=== PATIENT | female | born 1955 | race Caucasian/White ===

== ENCOUNTER 2020-08-26 10:43 | Day surgery (SDC) | payer OTHER, SELFPAY ==
[2020-06-29 14:52] VITALS: BMI 26.1
[2020-08-26] VITALS (8 sets, daily range): BP systolic 144–167; BP diastolic 71–93; PULSE 85–116; RESP 14–16; TEMP 36.9–37.3; O2SAT 97–100; BMI 28.0
--- NOTE | 2020-08-26 | IMM_PTH ---
PATIENT: RODRICK SMITH [place] [facility] [place][id number] AGE/SX: 64/F ROOM: RE08/26/[address]: Dr. Malick Santa MD : 1955 BED: DIS: 08/26/2020 SPEC #: [id number] RECD: 08/30/20 11:18 STATUS: SOULonnie REQ #: [id number] BITA: 08/26/20 00:[address]: Malick Santa DEPT: IMMUNOHISTOCHEMISTRY RECD BY: Taisha Chanel ENTERED: 08/30/20 11:20 SP TYPE: IMMUNO OTHR DR: Dr. Renae Burden MD Tissues: A - Skin of face, NOS Procedures: SMA (add) CK8 (add) DESMIN (add) Vimentin (add) Pankeratin (initial) MELAN-A (add) S-100 (add) PHYSICIAN & INSTITUTION [place] [id number] SPECIMEN INFORMATION: Tissue Source: A ? Lesion left cheek Clinical Info: 8 mm cutaneous horn lesion left cheek Specimen Number: [id number] CPT code: 97352, 52905 x6 METHODOLOGY: Deparaffinized sections of prefer/formalin-fixed tissue or PAP/DQ stained slides are incubated with monoclonal/polyclonal antibodies/oligonucleotide probes. Localization is made via biotin free immunoperoxidase method. Appropriate controls are performed and reacted as expected. Results on target cell population are indicated in the following table: RESULTS: ANTIBODY / CLONE RESULT Block A1 AE1-3 (AE1/AE3/PCK26) negative CK8 ([id number]) negative Vimentin (V9) positive Actin (1A4) negative Desmin (CE-R-11) negative Melan A (A103) negative S-100 (4C4.9) positive These tests were developed and their performance characteristics determined by [facility]. They may not have been cleared or approved by the U.S. Food and Drug Administration. The FDA has determined that such clearance or approval is not necessary. The above immunohistochemical/dualISH markers are ordered and reviewed by the Pathologist. INTERPRETATION: A. Lesion of left cheek, biopsy: Consistent with neurofibroma. CYDNEY:connie 08/31/2020
--- NOTE | 2020-08-26 | LES_PTH ---
PATIENT: RODRICK SMITH LOC: [facility] – [place] U#:[id number] AGE/SX: 64/F ROOM: RE08/26/[address]: Dr. Malick Santa MD : 1955 BED: DIS: 08/26/2020 SPEC #: [id number] RECD: 08/26/20 13:02 STATUS: ISABELLA REQ #: [id number] BITA: 08/26/20 00:[address]: Malick Santa DEPT: SURGICAL PATHOLOGY RECD BY: Taisha Chanel ENTERED: 08/26/20 14:06 SP TYPE: Lesion OTHR DR: Dr. Renae Burden MD Tissues: A - Skin of face, NOS B - Skin of face, NOS Procedures: Frozen Section (charge) Surgery Specimen Level IV HEADER OPERATION: Excision lesion cheek with frozen section, skin flap PRE-OP DIAGNOSIS: 8 mm cutaneous horn lesion left cheek TISSUE SUBMITTED: A ? Lesion left cheek, FS at 1300, B ? Extra margin lesion left cheek FROZEN SECTION DIAGNOSIS A. Lesion of left cheek, biopsy: Spindle cell neoplasm. AM:connie 08/26/2020 MICROSCOPIC DIAGNOSIS A. Lesion of left cheek, biopsy: Consistent with neurofibroma, completely excised. See comment. B. Lesion of left cheek, extra margin: Negative for residual neurofibroma. Focal ulceration consistent with site of specimen A. SJ:connie 08/30/2020 COMMENT A. Immunohistochemistry ([id number]) supports the above diagnosis. This case has been reviewed in consultation with Dr. Christy who concurs with the above diagnosis. MICROSCOPIC DESCRIPTION Slides are reviewed. GROSS DESCRIPTION A - Received fresh for frozen section consultation labeled with the patient's name is a specimen designated lesion left cheek. The specimen consists of a polypoid fragment of pink-donohue skin measuring 1 cm in length and 0.8 cm in diameter. The presumed margin of resection is inked. The specimen is bisected and totally submitted in one block for frozen section consultation. / AM:connie 08/26/20 B - Received in fixative is one container labeled with the patient's name and designated extra margin lesion left cheek. The specimen consists of a jennifer-shaped piece of donohue-white skin measuring 1.2 x 1.2 cm and up to 0.3 cm in thickness. A suture is present at presumed to be 12 o?clock positon. The specimen is inked as follows: 12 to 3 o?clock - black, 3 to 6 o?clock - blue, 6 to 9 o?clock - green and 9 to 12 o?clock - yellow. A focal area of ulceration is noted on the surface consistent with site of specimen A measuring 1 cm in diameter. The specimen is serially sectioned and submitted entirely in one cassette. / SJ:connie 08/29/20 TC:1 CPT: 91163 x2, 98965
--- NOTE | 2020-08-26 10:02 | PCM.HP.BLA ---
History and Physical Date of Admission: 08/26/20 HISTORY OF PRESENT ILLNESS 64 year old woman presents for evaluation for TBSE. She has concerns about an enlarging lesion on her left cheek as well as some actinic damage on her nasal dorsum. She denies fever. She denies trauma. Denies bleeding. Denies recent infection. She comes in for further evaluation and treatment. PAST MEDICAL HISTORY Actinic keratosis Neoplasm of skin of left cheek Arthritis Asthma PAST SURGICAL HISTORY Nasal polyp ALLERGIES Penicillins MEDICATIONS albuterol sulfate solution for nebulization beclomethasone dipropionate aerosol inhaler fluoxetine levothyroxine FAMILY HISTORY No pertinent family history SOCIAL HISTORY Smoking Status: Never smoker alcohol intake: never substance use type: does not use REVIEW OF SYSTEMS General - Denies fever, fatigue, and weight loss. Eyes - Denies cataracts and glaucoma. ENT - Denies nasal congestion and sore throat. Endocrine - Denies excessive thirst and urination. Skin - Denies skin cancer. Has an enlarging lesion left cheek. Has scattered actinic damage nasal dorsum. Musculoskeletal - Has joint pain, joint stiffness. Denies weakness of muscles and joints, back pain, and arthritis. Neuro - Denies headaches. Has lightheadedness. Cardiovascular - Denies chest pain, fatigue, and shortness of breath with exertion. Psych - Denies anxiety and depression. Respiratory - Denies chronic cough and shortness of breath. Has asthma. Gastrointestinal - Denies nausea, vomiting, diarrhea, and constipation. Hematologic - Denies abnormal bruising and bleeding. Genitourinary - Denies hematuria and urinary frequency. PHYSICAL EXAMINATION General - Alert and Oriented HEENT - PERRL. EOMI. Throat is clear. On the left cheek is a lesion that is raised in configuration. Measures 8 mm. Some scabbing seen. Has irregular borders. It has a cutaneous horn component. No ulceration. There is firmness at the tip of this lesion. Has scattered actinic damage nasal dorsum. No other suspicious lesions noted. Neck - Supple and nontender. No cervical adenopathy. No suspicious lesions noted. Lungs - Clear to auscultation. Heart - Regular rate and rhythm. Abdomen - Soft and nondistended. Extremities - FROM. No axillary adenopathy. Radial pulses are palpable. No suspicious lesions noted. Neuro - CN II-XII grossly intact. Psych - Normal mood and affect. ASSESSMENT 1. 8 mm cutaneous horn lesion left cheek. 2. Scattered actinic damage nasal dorsum. PLAN Recommend a full thickness excision of the left cheek lesion because there is a cutaneous horn component. Will send the lesion to Pathology for analysis to rule out carcinoma. If carcinoma is present then a wider excision will be done. Reconstruction will be with a local skin flap. Surgery will be done under local anesthesia and IV sedation on an outpatient basis. Patient was informed of the risks and complications of the procedure including alternatives to surgery. These were discussed with the patient personally. Patient voices understanding and wishes to proceed. Some of the risks and complications were included in a form from the [employer]. For the scattered actinic damage nasal dorsum, will send script for Rogelio. She will use it daily at night 5 days per week for 6 weeks. Re-evaluation would be in 2 months. We discussed the current risks associated with COVID-19. While it is understood that there is a community spread of COVID-19, the risk of george COVID-19 while at [facility] ([facility]) is very low; however, the risk cannot be completely mitigated because of the community spread of the disease. We discussed in detail the risk of exposure to and/or potential harm posed by the COVID-19 virus with having a surgery/procedure at this time versus the risk of delaying the surgery/procedure. It is not possible to know either the risk of delaying the surgery or procedure or chance of getting an infection with perfect accuracy, but a joint decision was made to proceed at this time with the scheduled surgery/procedure as indicated on the consent form. Patient was notified that we will need to comply with any screening or testing [facility] wishes to perform or that surgery may be delayed for any positive results. Discussed with the patient that I was tested for COVID-19 on 09/24/19 which was negative and on 10/08/19 which was negative and on 10/22/19 which was negative and on 11/05/19 which was negative and on 11/19/19 which was negative and on 12/10/19 which was negative and on 12/31/19 which was negative and on 02/04/20 which was negative and on 02/25/20 which was negative and on 03/15/20 which was negative. ? My testing regimen at this time is to be COVID-19 tested every 2 weeks or so.? I received the COVID-19 vaccine (Moderna) on 03/23/20 and the second vaccine dose was received on 04/20/20.? When I was hospitalized on 05/23/20 I was tested for COVID-19 which was negative.? I was also? tested for COVID-19 on 06/07/20 which was negative and on 07/04/20 which was negative. Procedure Criteria Procedure Type:?Elective COVID Risk Discussion: The surgeon/proceduralist and patient have discussed in detail the risk of exposure to and/or potential harm posed by the COVID-19 virus with having a surgery/procedure at this time versus the risk of delaying the surgery/procedure.? It is not possible to know either the risk of delaying the surgery or procedure or chance of getting an infection with perfect accuracy, but a joint decision was made between the patient and the surgeon/proceduralist to proceed at this time with the scheduled surgery/procedure as indicated on the consent form.
[2020-08-26] MEDS: Lidocaine 1% /Epi 1:100 (20ml) 20 ML Vial (12:23)
[2020-08-26] MEDS: Mupirocin Ointment 22gm Tube 1 APPLIC (13:46)
--- NOTE | 2020-08-26 13:49 | OP.PCM_ITS ---
Report of Operation Date of Procedure: 08/26/20 Pre-Operative Diagnosis: 1. 8 mm cutaneous horn lesion left cheek. 2. Scattered actinic damage nasal dorsum. Post-Operative Diagnosis: 1. 8 mm dermatofibroma left cheek. 2. Scattered actinic damage nasal dorsum. Surgery/Procedure Performed:: Excision 8 mm cutaneous horn lesion left cheek with rhomboid transposition skin flap reconstruction (2.88 cm2). Description of Surgical Findings:: 64 year old woman presents for evaluation for TBSE. She has concerns about an enlarging lesion on her left cheek as well as some actinic damage on her nasal dorsum. She denies fever. She denies trauma. Denies bleeding. Denies recent infection. Patient was informed of the risks and complications of the procedure including alternatives to surgery. These were discussed with the patient personally. Patient voices understanding and wishes to proceed. Some of the risks and complications were included in a form from the [employer]. Frozen section left cheek - possible dermatofibroma, negative for carcinoma. Surgeon: Malick Santa chief dog license inspector: None Type of Anesthesia: Local MAC (Xylocaine with epinephrine and IV sedation.) Specimen's removed: 1. Cutaneous horn lesion left cheek to Pathology as a frozen section. 2. Additional margin dermatofibroma left cheek to Pathology. Drains: None. Estimated Blood Loss (mL): 2. Description of Procedure: Patient was taken to OR in supine position and was given IV sedation. The left side of the face was prepped and draped in the usual fashion. SCD's were placed for DVT prophylaxis. Perioperative antibio tics were given intravenously. The lesion left cheek was infiltrated with xylocaine and epinephrine. After waiting 5 minutes for the anesthetic to take effect, the cutaneous horn lesion was excised in a circular fashion down into the subcutaneous tissue. A suture was marked at the 12 oclock position for pathology orientation. The lesion was sent to Pathology as a frozen section for analysis to rule out carcinoma. Frozen section showed a possible dermatofibroma and no carcinoma seen. I turned the circular wound into a rhomboid wound with further excision. A suture was marked at 12 oclock position for pathology orientation. The additional tissue was sent to Pathology for analysis. The lesion was excised with a 2 mm margin in all directions thus making it a 1.2 cm excision. A rhomboid flap was designed inferiorly. Incisions were made and the flap was elevated on a subcutaneous pedicle and easily transposed into the defect with minimal tension and minimal distortion. The size of the defect and the size of the flap needed to close the defect was 2.88 cm2. Hemostasis was obtained with electrocautery. The wound was irrigated with saline. Once the flap was transposed into the defect, it was closed in a layered fashion with 5-0 Monocryl interrupted sutures for the deep dermis and subcutaneous tissue. The skin was approximated with 6-0 Prolene simple interrupted sutures. Steri-strips were applied followed by antibiotic ointment. Patient tolerated the procedure well and was sent to PACU in satisfactory condition. Patient will be sent home on antibiotics and pain medication. She will keep her head elevated during the initial postoperative period. Patient will followup in a week for a wound check and for discussion of the pathology report and for removal of the sutures. Grafts/Implants Used: None. Complications None. Admit VTE Documentation VTE Present on Admission: No VTE Mechan Device Prophylaxis: SCD's VTE Pharm Prophylaxis ordered?: No Addendum Addendum: Surgery Charges CPT - 14335 ICD-10 - D49.2, D23.30, L57.0
--- NOTE | 2020-08-26 14:10 | PCM.DC ---
Discharge Instructions Activity Discharge Activity: May Not Drive (if taking pain medication.), May Shower (in two days.) and - (keep head elevated. no heavy lifting.) May shower in (days): 2 May resume sexual activity in: No Restrictions Ice area for (Minutes): 5 (as needed for facial swelling.) Weight Bearing Status: Weight bearing as tolerated Lifting Restrictions: 20 lbs. Keep extremity elevated above heart level: - (elevate head.) Dressing / Incision Call your doctor if your incision/area has: Continuous Slow Oozing, Sudden Increased Bleeding, Increased Redness, Foul Smelling Discharge and Swelling at the incision site Call your doctor if you observe: Fever of 101 or Higher, Shortness of breath and Chest pain Suture Line Care: Avoid Pulling/Pushing (apply antibiotic ointment to suture line daily.) Change Dressing in: leave in place till F/U (if the steri-strips come loose, you may remove them.) Cleanse incision/area with: - (may get incision wet in the shower in two days.) Follow Up Care Please Follow Up With: Malick Santa MD When: one week. call [phone] for appt. Test Results: Test results from this visit will be discussed in further detail at your follow-up appointment, if applicable. Discharge Plan Admission Primary Reason for Your Visit: outpatient surgery Attending Provider: Malick Santa Primary Care Provider: Renae Burden Discharge Orders/Prescriptions Prescriptions: New clindamycin HCl [Cleocin HCl] 300 mg capsule 300 mg PO TID Qty: 12 RF: 0 L.acidoph,saliva-B.bif-S.therm [Acidophilus Probiotic Blend] 175 mg capsule 1 cap PO DAILY Qty: 10 RF: 0 oxycodone-acetaminophen [Percocet] 5-325 mg tablet 1 tab PO Q6H PRN (Reason: pain (scale score 7-10)) 5 Days Qty: 20 RF: 0 Continued levothyroxine 75 mcg capsule 75 mcg PO DAILY RF: 0 fluoxetine 40 mg capsule 40 mg PO DAILY RF: 0 beclomethasone dipropionate 80 mcg/actuation Aerosol 80 mcg INHALATION PRN PRN (Reason: SOB) RF: 0 albuterol sulfate 90 mcg/actuation Hfa Aerosol Inhaler 1 inh INHALATION Q6H PRN (Reason: SOB) RF: 0 Referrals / Follow Up: Malick Santa MD [STAFF PHYSICIAN] - In 1 Week Renae Burden MD [Primary Care Provider] - Disposition Disposition (needs filled in before D/C Order can be placed): Home, self care
== END 2020-08-26 15:31 | disposition home or self-care (01) ==
LOC: SDC 10:44 → AC 10:45
PROVIDERS: PCP Internal Medicine; Referring Provider Surgery; Visit Provider Surgery
PROC: (CPT 14040; principal; 2020-08-26 12:25)
DX: D36.11 Benign neoplasm of peripheral nerves and autonomic nervous system of face, head, and neck (principal); D23.39 Other benign neoplasm of skin of other parts of face; M19.90 Unspecified osteoarthritis, unspecified site; J45.909 Unspecified asthma, uncomplicated; E07.9 Disorder of thyroid, unspecified; Z79.51 Long term (current) use of inhaled steroids; Z79.899 Other long term (current) drug therapy
CPT/HCPCS: 00300; 14040; 64788; 87426; 88305; 88331; 88341; 88342; C9803; J7120; J2405

== ENCOUNTER 2021-11-17 10:00 | Outpatient (RCR) | payer BC, SELFPAY ==
--- NOTE | 2021-11-09 16:41 | HP.PTEVAL ---
Patient's Visit Information RODRICK SMITH is a 65 year old F referred to Physical Therapy by Dr. Anderson Gee MD with a diagnosis of vestibular neuritis. Date of Evaluation: 11/09/21 Physical Therapist: Robert Phipps, BROWNT, OCS, CSCS - Visit Plan Frequency: 1-2x /Week Duration: 2-4 Weeks Plan: 1-2x/week as needed for 2-4 to treat with positional treatments and monitor for vestibular neuritis and appropriate other vestibular exercises. - Subjective I have vertigo. had it on and off for twenty years, usually doesn't last long and she is careful of her movements. usually lasted a day. This past September she got covid and had a solid week of constant dizzyness that kept her from functioning. She could not move/drive and was very scared and frustrated. Went to Dr. gee and ordered vestibular therapy. He did some clinical testing and it is not positional. Currently is 99% better. Got outside the last coupke days and work in garden. bending still bothers her but it is at baseline and goes away quickly. Sleep is Ok currently. Retired. Basic ADLs are going well, they were very slow for a week or so. Hobbies: Gardening and reading. Reading is not a problem. No regular ex. This started around 10/16/21 and lasted badly for about a week. Balance sherrell never been good, Hector chi has helped in the past. - Objective Walks slowly but secure into PT, no confidence in balance but decent balance. Transfers bed and chair I. Steps reciprocal without rail, slow. cervical aROM WFL and without pain. + R HD for up torsional nystagmus 10 seconds. Treated with li adn then - HD test R. - Balance/Special Test Scores Functional Gait Assessment Score: 29 % Disability: 3.3400 Dizziness Score: 46 - Goals Goal 1:: abolish dizzyness 100% Goal Time Frame: 2-4 Weeks Goal 2:: 30 FGA score Goal Time Frame: 2-4 Weeks Goal 3:: Back to 100% activities including gardeing without symptoms Goal Time Frame: 2-4 Weeks Goal 4:: DHI less than 10. Goal Time Frame: 2-4 Weeks - Rehabilitation Potential Physical Therapy Diagnosis: BPPV and vestibular deficits Rehabilitation Potential: Good - Anticipated Interventions Patient/Client Instruction: Educate patient on: Condition, Plan of Care For the Purpose of:: To increase tolerance to activity/condition/position Comment: vestibular ex and techniques For the Purpose of:: To improve ability of physical actions for home/community/work/leisure, To improve safety with gait Thank you for the opportunity to evaluate your patient. For Medicare and Medicare HMO plans, please review the plan of care and approve it. It will need to be FAXED BACK to us at [phone] for Medicare purposes. For Medicare only, by signing this I certify the plan of care. Please let me know if there are questions or concerns regarding this plan of care. Physician Signature: Date:
--- NOTE | 2021-11-17 10:10 | HP.PTDCSUM ---
It has been my pleasure to treat RODRICK SMITH referred by Dr. Anderson Gee MD, with the diagnosis of vestibular neuritis for a total of 2 visit(s). Discharge Date: 11/17/21 Please see the following information for a summary of their discharge status. Subjective: Absolutely wonderful.. Did great. Next day after session have had no problems. Been working outside with no problems. No dizzyness since last session. Activities normal. No f/u scheduled with doctor. % Improvement: 100 Objective/Function: - B hallpike rubi and roll test. Goal 1:: abolish dizzyness 100% Goal Progress: Goal Met Goal 2:: 30 FGA score Goal Progress: Goal Met Goal 3:: Back to 100% activities including gardeing without symptoms Goal Progress: Goal Met Goal 4:: DHI less than 10. Goal Progress: Goal Met Plan: d/c Discharge Comments: Doing well and will contact doctor if dizzy returns whch would be unexpected. If there are questions or concerns regarding this patient's physical therapy, please feel free to call me at [phone]. Thank you for the referral of this patient. Sincerely, Robert Phipps, DPT, OCS, CSCS Balance/Gait/Functional tests - Balance/Special Test Scores Functional Gait Assessment Score: 30 % Disability: 0 Dizziness Score: 0
== END 2021-11-17 19:00 | disposition home or self-care (01) ==
LOC: PT 10:00
PROVIDERS: PCP Internal Medicine; Referring Provider Otolaryngology; Visit Provider Otolaryngology
DX: H81.20 Vestibular neuronitis, unspecified ear (principal)
CPT/HCPCS: 97161; 97530

== ENCOUNTER 2025-01-06 11:36 | Emergency (ER) | payer MEDICARE, SELFPAY ==
[2025-01-06 11:37] VITALS: BP 152/92; PULSE 107; RESP 20; TEMP 36.5; O2SAT 97; BMI 25.7
[2025-01-06 11:39] VITALS: BP 152/92; PULSE 107; RESP 20; TEMP 36.5; O2SAT 97
[2025-01-06 11:47] VITALS: O2SAT 96
--- NOTE | 2025-01-06 11:52 | RAD_ITS ---
PROCEDURE: CHEST PA AND LATERAL 01/06/2025 REASON FOR EXAM: BILATERAL EXPIRATORY WHEEZING AND BILATERAL RALES Chest tightness. TECHNIQUE: Procedure Code: RADCXR Modality: DX Procedure: CHEST PA AND LATERAL COMPARISON: None FINDINGS: Hardware: EKG electrodes are seen. Heart: The heart size is normal. Mediastinum: The mediastinal contour is unremarkable. Lungs: There are granulomatous calcifications. The lungs are otherwise clear. Bones: Degenerative changes are identified within the thoracic spine. RAD/Chest PA and Lateral IMPRESSION: NO ACUTE FINDINGS. Reading Location: [place] [id number]
--- NOTE | 2025-01-06 11:52 | EKG12_ITS ---
Test Reason : Blood Pressure : */* mmHG Vent. Rate : 94 BPM Atrial Rate : 94 BPM P-R Int : 120 ms QRS Dur : 80 ms QT Int : 382 ms P-R-T Axes : 65 49 53 degrees QTcB Int : 477 ms Normal sinus rhythm Normal ECG Confirmed by TIARA ALVES, CATHLEEN ([id number]), technical editor LEI INMAN ([id number]) on 01/07/2025 10:03:00 AM Referred By: Confirmed By: CATHLEEN MENJIVAR MD
[2025-01-06 12:26] LABS: Hematocrit 36.4 % (37-47); Hemoglobin 11.9 g/dL (12.0-15.0); Immature Granulocytes Count 0.040 X10^3/uL (0.0-0.0); Mean Corp Hgb Conc 32.7 g/dL (32-36); Mean Corpuscular Volume 85.2 fL (81-99); Mean Platelet Vol. 8.3 fl (6.2-12.0); NRBC Flagged by Analyzer 0 % (0-5); Platelet Count 413 K/mm3 (150-450); RBC Distribution Width CV 14.6 % (11.6-14.6); RBC Distribution Width SD 45.2 fl (35.1-43.9); Red Blood Count 4.27 M/mm3 (4.2-5.4); White Blood Count 9.6 K/mm3 (4.4-11.0)
--- NOTE | 2025-01-06 12:28 | EDS_ITS ---
HPI History of Present Illness Chief Complaint: Asthma Informant: patient Onset/Context/Timing Onset: Days Context: - (Reports orthopnea, wheezing and slight nonproductive cough) Timing: Intermittent Quality: Positive for Dyspnea on exertion, Orthopnea and Wheezing; Negative for PND Current Severity: Mild Maximum Severity: Moderate Worsened by: Exertion and Lying flat Relieved by: Nothing Associated Symptoms cough; Negative for rhinorrhea, post nasal drip, ear pain, fever, sore throat, subjective, chills, sweats, clear sputum, white sputum, yellow sputum or green sputum Chest Pain: Positive for None Narrative Narrative: Patient is a 69-year-old woman. She has history of asthma, hypothyroidism and depression. She is been using her inhaler 5-6 times a day last several days. She is only administering 1 puff at a time. She does not have a spacer. She denies fever or chills. She may have slight congestion at best. She denies sore throat. Her cough is nonproductive. She does endorse orthopnea over the past couple of evenings. She denies swelling of her legs or feet. She has no history of congestive heart failure or coronary artery disease. She denies diabetes, hyperlipidemia or hypertension. She has no history of VTE. She has no risk factors for VTE. She denies any leg pain, swelling or discoloration. She has no pleuritic chest pain. PE Risk Factors: Negative for Cancer, OCP + Smoking + > 35, Prior DVT or PE, Recent immobilization, Recent surgery or Recent travel Prior similar symptoms: Yes (Asthma.) Recent Illness/Hospitalization: No PFSH [facility] Medical History Neurofibroma of face Dermatofibroma of face Wears glasses Depression Anxiety Thyroid disease Heartburn Non-smoker Shortness of breath on exertion Actinic keratosis Neoplasm of skin of left cheek Asthma Arthritis Allergies Home Medications ?Medication ?Instructions ?Recorded ?Last Taken ?Type fluoxetine 40 mg capsule 40 mg PO DAILY 04/28/20 Unkn own History levothyroxine 75 mcg capsule 75 mcg PO DAILY 04/28/20 08/26/20 06:00 History 75 MCG albuterol sulfate 90 mcg/actuation 1 inh inhalation Q6 H PRN SOB 08/19/20 Unknown History aerosol inhaler beclomethasone dipropionate 80 80 mcg inhalation PRN P MAURY SOB 08/19/20 Unknown History mcg/actuation aerosol inhaler inhalational spacing device (Space #1 ea 01/06/25 Unkn own Rx Chamber) prednisone 20 mg tablet 60 mg (3 x 20 mg) PO DAILY # 12 01/06/25 Unknown Rx TABLETS Allergy/AdvReac Type Severity Reaction Status Date / Time Penicillins Allergy Unknown unknown Verified 01/06/25 11:40 Family History Other No pertinent family history Surgical History Hx of colonoscopy Hx of nasal polypectomy Social History Smoking Status: Never smoker alcohol intake: never substance use type: does not use additional social history: Does not take aspirin Does not take Ibuprofen ROS ROS ED Constitutional Constitutional ED: Denies chills, fever(s), sweats or weight loss Eyes Eyes: Denies blurry vision or change in vision ENT ENT ED: Denies ear pain, rhinorrhea or sore throat Cardiovascular Cardiovascular: Reports orthopnea; Denies chest pain, palpitations, paroxysmal nocturnal dyspnea or racing heartbeat Respiratory/Chest Respiratory/Chest: Reports cough, dyspnea, dyspnea on exertion and orthopnea; Denies paroxysmal nocturnal dyspnea or sputum Gastrointestinal Gastrointestinal: Denies abdominal pain, nausea or vomiting Genitourinary Genitourinary ED: Denies dysuria, hematuria or urinary frequency Musculoskeletal Musculoskeletal: Denies arthralgias or myalgias Integumentary Denies abscess or rash Neurologic Neurologic: Denies headache(s) or paresthesias Hematologic/Lymphatic Hematologic/Lymphatic: Denies easy bleeding or easy bruising EXAM Physical Exam Const Vital Signs: 01/06/25 11:37 01/06/25 11:39 01/06/25 11:47 Temperature 97.7 F L 97.7 F L Temperature Source Temporal Temporal Pulse Rate 107 H 107 H Respiratory Rate 20 H 20 H Respiratory Effort Short of Breath Respiratory Depth Normal Respiratory Pattern Normal Blood Pressure 152/92 H 152/92 H Blood Pressure Mean 112 112 Pulse Ox 97 97 Oxygen Delivery Method Room Air Room Air Room Air 01/06/25 12:39 01/06/25 12:39 01/06/25 13:16 Temperature 98.6 F Temperature Source Oral Pulse Rate 89 92 88 Respiratory Rate 16 18 16 Respiratory Effort Respiratory Depth Respiratory Pattern Normal Blood Pressure 117/78 134/78 H Blood Pressure Mean 91 96 Pulse Ox 97 97 Oxygen Delivery Method Room Air Room Air Positive well nourished and well developed Constitutional Narrative: Blood pressure is elevated. Patient is tachycardic. She is slightly anxious. General Appearance ED: well developed HEENT Reports moist mucous membranes HEENT Narrative: Head is atraumatic and normocephalic. Ears are normal. Nares patent. Posterior pharynx is normal. Eyes PERRL and EOMs intact bilaterally General Eye ED: Negative for pale conjunctiva or scleral icterus Neck no lymphadenopathy, supple, no meningeal signs and no JVD Resp normal respiratory effort and No clear to auscultation bilaterally Resp Narrative: Patient has bilateral rales and expiratory wheezing heard throughout. Cardio regular rhythm, S1 normal heart sound, S2 normal heart sound and no murmurs Rate: tachycardic GI non-tender, non-distended and no masses Extremity normal to inspection Extremity Narrative: There is no asymmetry, swelling, discoloration, leg vein distention, palpable cords or tenderness along the distribution of the deep venous system. Neuro oriented x3 and CN's II-XII intact bilaterally Sensorium / Orientation: alert Psych mental status grossly normal Skin no wounds and skin turgor normal MDM MDM MDM Narrative Medical decision making narrative: Differential diagnosis is upper respiratory infection with exacerbation of asthma, pneumonia, CHF, history and physical not consistent with pulmonary embolus. She also has no risk factors. Wells score is less than 3. She is not PERC negative since she is greater than the age of 55. History & Record Review Additional record(s) reviewed:: No prior records Lab Data Attestation: I reviewed the patient's lab results. Lab results narrative: CBC reveals mild anemia. Indices are normal. Labs: Laboratory Results - last 24 hr 01/06/25 12:18 WBC 9.6 RBC 4.27 Hgb 11.9 L Hct 36.4 L MCV 85.2 MCH 27.9 MCHC 32.7 RDW Std Deviation 45.2 H RDW Coeff of Teodora 14.6 Plt Count 413 MPV 8.3 Immature Gran % (Auto) 0.400 Neut % (Auto) 80.6 H Lymph % (Auto) 10.7 L [place] % (Auto) 5.9 Eos % (Auto) 2.0 Baso % (Auto) 0.4 Absolute Neuts (auto) 7.7 Absolute Lymphs (auto) 1.02 Nucleated RBC % 0 Sodium 132 L Potassium 4.1 Chloride 97 L Carbon Dioxide 23.2 Anion Gap 12 BUN 14 Creatinine 0.48 L Estim Creat Clear Calc 60.52 Est GFR (MDRD) Non-Af 102 BUN/Creatinine Ratio 28.2 H Glucose 90 Calcium 8.8 Radiography Chest X-Ray - ED: 2 View, Read by ED Physician, Normal, Heart, Lungs, Mediastinum, Bony Structures and No Acute Disease Diagnostic Testing: Clinical Impression(s) from Imaging Studies Chest X-Ray 01/06/25 11:52 IMPRESSION: NO ACUTE FINDINGS. Reading Location: [place] [id number] Since chest x-ray reveals no evidence of heart failure will treat with DuoNeb and albuterol nebulized treatment. She also received 60 mg of prednisone. Treatment and Re-Evaluation :: Patient was reassessed at 1401. She is no longer wheezing. She states she feels much better and she looks better. Plan is discharged with prescription for spacer and burst of prednisone. Discharge Plan Triage Chief Complaint: Asthma ED Provider: Edu Priest Dx/Rx/DC Orders Clinical Impression: Acute asthma exacerbation, Elevated blood pressure reading without diagnosis of hypertension, Hypothyroid Instructions: ED Asthma, Acute (Adult) Prescriptions: New prednisone 20 mg tablet 60 mg PO DAILY Qty: 12 0RF (DME) Space Chamber Spacer See Rx Instructions .Route Qty: 1 0RF Rx Instructions: As directed No Action levothyroxine 75 mcg capsule 75 mcg PO DAILY fluoxetine 40 mg capsule 40 mg PO DAILY beclomethasone dipropionate 80 mcg/actuation Aerosol 80 mcg INHALATION PRN PRN (Reason: SOB) albuterol sulfate 90 mcg/actuation Hfa Aerosol Inhaler 1 inh INHALATION Q6H PRN (Reason: SOB) Primary Care Provider: Renae Burden Referrals: Renae Burden MD [Primary Care Provider, Internal Medicine] - 3-5 Days if not improving Activity Restrictions/Additional Instructions: Use spacer with your metered-dose inhaler. 2 puffs every 2-4 hours while awake for the next 3 to 5 days and every 4-6 hours as needed for wheezing or shortness of breath. Use spacer since it will deliver more medication. If you develop significant shortness of breath 4 to 6 puffs with spacer and repeat in 15 minutes if you are still having shortness of breath return to the emergency Print Language: Indonesian Disposition Disposition: Home, Self Care
[2025-01-06 12:39] VITALS: BP 117/78; BP 134/78; PULSE 89; PULSE 92; RESP 16; RESP 18; TEMP 37; O2SAT 97
[2025-01-06 13:13] LABS: Anion Gap 12 (5-15); BUN 14 mg/dL (4-19); BUN/Creat Ratio 28.2 RATIO (10-20); Calcium,Total 8.8 mg/dL (7.6-11.0); Carbon Dioxide 23.2 mmol/L (21.0-32.0); Chloride 97 mmol/L (98-108); Estimated Creatinine Clearance 60.52 ml/min (50-250); Glucose 90 mg/dL (70-99); Potassium 4.1 mmol/L (3.3-5.1)
[2025-01-06] MEDS: Albuterol 2.5 MG/3 ML VIAL.NEB. INHALATION ×3 (13:13)
[2025-01-06 13:16] VITALS: PULSE 88; RESP 16
[2025-01-06 14:16] VITALS: BP 129/61; PULSE 99; RESP 20; TEMP 36.4; O2SAT 99
== END 2025-01-06 14:38 | disposition home or self-care (01) ==
PROVIDERS: Emergency Provider Emergency Medicine; PCP Internal Medicine; Visit Provider Emergency Medicine
DX: J45.901 Unspecified asthma with (acute) exacerbation (principal); R03.0 Elevated blood-pressure reading, without diagnosis of hypertension; E03.9 Hypothyroidism, unspecified
CPT/HCPCS: 71046; 80048; 85025; 93005; 94640; 99283; A4216